=== PATIENT | male | born 1955 | race Caucasian/White ===

== ENCOUNTER → 2017-09-15 | Outpatient (CLI) | payer MEDICARE ==
[~2017-09-15] VITALS: Ht 172.7 cm; Wt 93.7 kg
[~2017-09-15] MED LIST: ALLO100T PO; ARIP2 PO; BUPR150T12; CARV12.52 PO; DEXTROSE 5%-LACTATED RING INJ 1,000 ML IV SCH; EZET10 PO; FERR324T8 PO; FLUT1SPR5 EACH NARE; FURO40TA PO; LACTATED RINGER'S 1000 ML IV PRN; LIDOCAINE HCL 1% PF 5 ML SYRINGE OTHER ONE; METOPROLOL TARTRATE 25 MG TAB PO PRN; ONABOTULINUMTOXINA INJ 100 UNITS/VIAL ONE; PANT40TA3 PO; PHENYLEPH/NS 1000 MCG/10 ML SYR IV ONE; PROPOFOL 200 MG/20 ML AMP IV ONE; SODI650T PO; SODIUM CHLORID 0.9% 500 ML IV PRN; VIT D3
[2017-09-15 09:14] LABS: AUTOMATED NEUTROPHIL # 4.3 TH/MM3 (1.8-7.7); BASOPHIL # 0.1 TH/MM3 (0-0.2); BASOPHIL % 1.4 % (0.0-2.0); EOSINOPHIL # 0.1 TH/MM3 (0-0.4); EOSINOPHIL % 1.3 % (0.0-4.0); HEMATOCRIT 28.3 % (39.0-51.0); HEMOGLOBIN 9.2 GM/DL (13.0-17.0); LYMPHOCYTE # 0.8 TH/MM3 (1.0-4.8); MEAN CELL VOLUME 90.9 FL (80.0-100.0); MEAN CORPUSCULAR HEMOGLOBIN 29.5 PG (27.0-34.0); MEAN CORPUSCULAR HGB CONC 32.5 % (32.0-36.0); MEAN PLATELET VOLUME 8.1 FL (7.0-11.0); MONO % 8.9 % (0.0-8.0); MONOCYTE # 0.5 TH/MM3 (0-0.9); NEUT % 74.4 % (16.0-70.0); PLATELET COUNT 245 TH/MM3 (150-450); RED BLOOD COUNT 3.12 MIL/MM3 (4.50-5.90); WHITE BLOOD COUNT 5.8 TH/MM3 (4.0-11.0)
[2017-09-15 09:27] LABS: INTERNATIONAL NORMALIZED RATIO 1.1 RATIO; PROTHROMBIN TIME - PATIENT 11.3 SEC (9.8-11.6)
--- NOTE | 2017-09-15 10:50 | GIPROC ---
[facility] [address] [facility]. [facility], [address] EGD PROCEDURE REPORT EXAM DATE: 09/15/2017 PATIENT NAME: Natan Petty MR #: [id number] BIRTHDATE: 1955 ATTENDING: Lisa Toth MD ORDER #: [id number] HISTORIAN DRAMATIC ARTS: Eva Saavedra and Leona Thomas STATUS: outpatient INDICATIONS: The patient is a 61 yr old male here for an EGD due to achalasia esophagitis -needs eval prior to possible surgery PROCEDURE PERFORMED: EGD w/ biopsy EGD w/ directed submucosal injection(s), any substance MEDICATIONS: None and Per Anesthesia. TOPICAL ANESTHETIC: none CONSENT: The patient understands the risks and benefits of the procedure and understands that these risks include, but are not limited to: sedation, allergic reaction, infection, perforation and/or bleeding. Alternative means of evaluation and treatment include, among others: physical exam, x-rays, and/or surgical intervention. The patient elects to proceed with this endoscopic procedure. medical equipment was checked for proper function. Hand hygiene and appropriate measures for infection prevention was taken. After the risks, benefits and alternatives of the procedure were thoroughly explained, Informed consent was verified, confirmed and timeout was successfully executed by the treatment team. The patient was anesthetized with topical anesthesia and the Pentax EG-[id number] endoscope was introduced through the mouth and advanced to the second portion of the duodenum. Retroflexed views revealed a hiatal hernia The gastroscope was then slowly withdrawn and removed. Nodule duodenal bulb-biopsy gastritis antrum-biopsy some retained food in distal esophagus-suctioned severe esophagitis distal esophagus/Gregory's -biopsy from 40, 39, 38, 37, 36 cm , NBI scope used BOTOX injected 100 units- 25 units in pyloric channel. ADVERSE EVENTS: There were no complications. IMPRESSIONS: 1. Nodule duodenal bulb-biopsy gastritis antrum-biopsy some retained food in distal esophagus-suctioned severe esophagitis distal esophagus/Gregory's -biopsy from 40, 39, 38, 37, 36 cm , NBI scope used BOTOX injected 100 units- 25 units in pyloric channel 2. Retroflexed views revealed a hiatal hernia RECOMMENDATIONS: 1. Await biopsy results. Biopsy results will not be ready for 7-10 days. If you don't hear from us in two weeks, call our office for biopsy results. 2. Anti-reflux regimen 3. Continue PPI 4. Avoid NSAIDS 5. Soft diet PATIENT CONDITION: stable DISPOSITION: Home REPEAT EXAM: Return 3 months as needed for EGD with BOTOX if no surgery planned Lisa Toth MD eSigned: Lisa Toth MD 09/15/2017 10:50 AM cc: Duane Koroma M.D. PATIENT NAME: Natan Petty MR#: [id number]
[2017-09-15 11:23] VITALS: BP 130/71; PULSE 76; RESP 20; TEMP 97.8; O2SAT 100
--- NOTE | 2017-09-15 12:26 | EKG ---
Date Performed: 09/15/2017 Time Performed: 08:13:30 PTAGE: 61 years EKG: Sinus rhythm NORMAL ECG NO PREVIOUS TRACING DOCTOR: Rno Jimenez Interpretating Date/Time 09/15/2017 12:22:22
[2017-09-21] MEDS: ONABOTULINUMTOXINA INJ 100 UNITS/VIAL SCH ×2 (12:21→12:24)
== END ==
LOC: HEND 07:53
PROVIDERS: ATTEND Internal Medicine Gastroenterology
DX: D64.9 Anemia, unspecified (principal); R79.1 Abnormal coagulation profile; K22.0 Achalasia of cardia; K29.50 Unspecified chronic gastritis without bleeding; K44.9 Diaphragmatic hernia without obstruction or gangrene; K20.0 Eosinophilic esophagitis; K29.80 Duodenitis without bleeding; I10 Essential (primary) hypertension
CPT/HCPCS: 00731; 43236; 43239; 84132; 85025; 85610; 86850; 86900; 86901; 88305; 88312; 93005; J0585; J2370; J7040